=== PATIENT | female | born 1960 | race Caucasian/White ===

== ENCOUNTER 2020-01-25 06:09 | Inpatient (IN) | payer OTHER ==
--- OUTSIDE RECORDS SUMMARY | 2020-01-25 06:13 | XMS ---
:1960 Author Organization [facility] Care Team Providers Name Role Phone Blossom, Mohsen Unavailable Unavailable Blossom, Mohsen Unavailable Unavailable Blossom, Mohsen Unavailable Unavailable Blossom, Mohsen Unavailable Unavailable Blossom, Mohsen Unavailable Unavailable Blossom, Mohsen Unavailable Unavailable Blossom, Mohsen Unavailable Unavailable Blossom, Mohsen Unavailable Unavailable Blossom, Mohsen Unavailable Unavailable Re-disclosure Warning The records that you are about to access may contain information from federally- assisted alcohol or drug abuse programs. If such information is present, then the following federally mandated warning applies: This information has been disclosed to you from records protected by federal confidentiality rules (42 CFR part 2). The federal rules prohibit you from making any further disclosure of this information unless further disclosure is expressly permitted by the written consent of the person to whom it pertains or as otherwise permitted by 42 CFR part 2. A general authorization for the release of medical or other information is NOT sufficient for this purpose. The Federal rules restrict any use of the information to criminally investigate or prosecute any alcohol or drug abuse patient.The records that you are about to access may contain highly sensitive health information, the redisclosure of which is protected by Article 27-F of the [facility] Public Health law. If you continue you may haveaccess to information: Regarding HIV / AIDS; Provided by facilities licensed or operated by the [facility] Office of Mental Health; or Provided by the [facility] Office for People With Developmental Disabilities. If such information is present, then the following [facility] mandated warning applies: This information has been disclosed to you from confidential records which are protected by state law. State law prohibits you from making any further disclosure of this information without the specific written consent of the person to whom it pertains, or as otherwise permitted by law. Any unauthorized further disclosure in violation of state law may result in a fine or longterm sentence or both. A general authorization for the release of medical or other information is NOT sufficient authorization for further disclosure. Encounters Encounter Providers Location Date Indications Data Source(s ) Attender: Mohsen 01/02/2020 [facility] ( [facility] Blossom 12:00:00 AM EDT Medical, ) Office Attender: Mohsen Cerrato 01/02/2020 12:00:00 A M EDT [facility] ([facility], ) Office Attender: Mohsen Cerrato 01/02/2020 12:00:00 A M EDT [facility] ([facility], ) Office Attender: Mohsen Cerrato 01/02/2020 12:00:00 A M EDT [facility] ([facility], ) Office Medications Medication Brand Start Product Dose Route Administrative Pharmacy [facility] Indications Reaction Description Data Name Date Form Instructions Instructions Source(s) Cholecalcif CHOLEC CHOLEC ALCIFE [facility] (St josh 1999 ALCIFE 2019 ed ROL [facility] UNT Oral ROL:80 12:00: Medical , Tablet 1663 00 AM PC) CHOLECALCIF EDT JOSH:[id number] CELEBREX: complet CELEBREX Donna TRUONG (St 2019 ed [facility] 12:00: Medical, 00 AM PC) EDT Simvastatin SIMVAS complet SIMVAS TATIN [facility] (St 10 MG Oral TATIN: 2019 ed [facility] Tablet [id number] 12:00: Medical, SIMVASTATIN 00 AM PC) :[id number] EDT Cholecalcif CHOLEC complet CHOLEC ALCIFE [facility] (St josh 1999 ALCIFE 2019 ed ROL [facility] UNT Oral ROL:80 12:00: Medical , Tablet 1663 00 AM PC) CHOLECALCIF EDT JOSH:[id number] Simvastatin SIMVAS complet SIMVAS TATIN [facility] (St 10 MG Oral TATIN: 2020 ed [facility] Tablet 339390 12:00: Medical, SIMVASTATIN 00 AM PC) :[id number] EDT CELEBREX: complet CELEBREX M EDGEN (St 2019 ed [facility] 12:00: Medical, 00 AM PC) EDT Simvastatin SIMVAS SIMVAS TATIN [facility] (St 10 MG Oral TATIN: 2019 ed [facility] Tablet [id number] 12:00: Medical, SIMVASTATIN 00 AM PC) :[id number] EDT CELEBREX: CELEBREX M MAITEN (St 2020 ed [facility] 12:00: Medical, 00 AM PC) EDT Insurance Providers Payer name Policy type Policy ID Covered Covered alliance party's Policy P hugo / Coverage alliance party ID relationship to Eckert Inf ormation type eckert CIGNA [id number] SP [id number] HEALTHCARE HMO CIGNA [id number] SP [id number] HEALTHCARE HMO 2 CIGNA [id number] 2 AETNA (HMO) [id number] Problems, Conditions, and Diagnoses Code Display Name Description Problem Type Effective Data Sour ce(s) Dates M16.12 Unilateral primary UNILATERAL PRIMARY Problem 0 [facility] ([address] osteoarthritis, OSTEOARTHRITIS, 12:00:00 AM [facility] left hip LEFT HIP EDT Medical, ) Z01.818 Encounter for other ENCOUNTER FOR Problem 01/02/2020 ME DGEN (St preprocedural OTHER 12:00:00 AM [facility] examination PREPROCEDURAL EDT Medical, P C) EXAMINATION M16.12 Unilateral primary UNILATERAL PRIMARY Problem 0 [facility] ([address] osteoarthritis, OSTEOARTHRITIS, 12:00:00 AM [facility] left hip LEFT HIP EDT Medical, PC) M16.12 Unilateral primary UNILATERAL PRIMARY Problem 0 [facility] (St osteoarthritis, OSTEOARTHRITIS, 12:00:00 AM [facility] left hip LEFT HIP EDT Medical, PC) J01.90 Acute sinusitis, ACUTE SINUSITIS, Problem 05/14/2019 ME DGEN (St unspecified UNSPECIFIED 12:00:00 AM [facility], ) J01.90 Acute sinusitis, ACUTE SINUSITIS, Problem 05/14/2019 ME DGEN (St unspecified UNSPECIFIED 12:00:00 AM [facility], ) J01.90 Acute sinusitis, ACUTE SINUSITIS, Problem 05/14/2019 ME DGEN (St unspecified UNSPECIFIED 12:00:00 AM [facility], ) Surgeries/Procedures Procedure Description Date Indications Data Source(s) Documentation of current 01/02/2020 MED [facility] ([facility] medications (procedure) 12:00:00 AM EDT [facility], ) Documentation of current 01/02/2020 MED [facility] ([facility] medications (procedure) 12:00:00 AM EDT [facility], ) Documentation of current 01/02/2020 MED [facility] ([facility] medications (procedure) 12:00:00 AM EDT [facility], ) Documentation of current 01/02/2020 MED [facility] ([facility] medications (procedure) 12:00:00 AM T [facility], ) Documentation of current 01/02/2020 MED [facility] ([facility] medications (procedure) 12:00:00 AM T [facility], ) Documentation of current 01/02/2020 MED [facility] ([facility] medications (procedure) 12:00:00 AM T [facility], ) Documentation of current 01/02/2020 MED [facility] ([facility] medications (procedure) 12:00:00 AM T [facility], ) OFFICE OUTPATIENT VISIT 01/02/2020 MED[facility] EN ([facility] 15 MINUTES 12:00:[address] [facility], ) ECG ROUTINE ECG W/LEAST 01/02/2020 [facility] EN ([facility] 12 LDS W/I&R 12:00:[address] [facility], ) Documentation of current 01/02/2020 MED [facility] ([facility] medications (procedure) 12:00:00 AM EDT [facility], ) ECG ROUTINE ECG W/LEAST 01/02/2020 MED[facility] EN ([facility] 12 LDS W/I&R 12:00:[address] [facility], ) Documentation of current 01/02/2020 MED [facility] ([facility] medications (procedure) 12:00:00 AM EDT [facility], ) Documentation of current 01/02/2020 MED [facility] ([facility] medications (procedure) 12:00:00 AM T [facility], ) ECG ROUTINE ECG W/LEAST 01/02/2020 MED[facility] EN ([facility] 12 LDS W/I&R 12:00:[address] [facility], ) Documentation of current 05/14/2019 MED [facility] ([facility] medications (procedure) 12:00:00 AM EST [facility], ) Documentation of current 05/14/2019 MED [facility] ([facility] medications (procedure) 12:00:00 AM EST [facility], ) Documentation of current 05/14/2019 [facility] Documentation of current 05/14/2019 [facility] ([facility] medications (procedure) 12:00:00 AM EST cheliical, ) OFFICE OUTPATIENT VISIT 05/14/2019 MED[facility] EN ([facility] 25 MINUTES 12:00:00 AM [facility] Medical, ) Documentation of current 05/14/2019 MED GEN ([facility] medications (procedure) 12:00:00 AM EST cheliical, ) Documentation of current 05/14/2019 MED [facility] ([facility] medications (procedure) 12:00:00 AM EST cheliical, ) Documentation of current 05/14/2019 MED [facility] ([facility] medications (procedure) 12:00:00 AM EST cheliical, ) Documentation of current 05/14/2019 MED [facility] ([facility] medications (procedure) 12:00:00 AM EST cheliical, ) OFFICE OUTPATIENT VISIT 05/14/2019 MED[facility] EN ([facility] 25 MINUTES 12:00:00 AM [facility] Medical, PC) Documentation of current 05/14/2019 MED [facility] ([facility] medications (procedure) 12:00:00 AM EST cheliical, ) Documentation of current 05/14/2019 MED [facility] ([facility] medications (procedure) 12:00:00 AM EST [facility]ical, ) Documentation of current 05/14/2019 MED [facility] ([facility] medications (procedure) 12:00:00 AM EST [facility]liical, ) Documentation of current 05/14/2019 [facility] ([facility] medications (procedure) 12:00:00 AM EST [facility]liical, ) OFFICE OUTPATIENT VISIT 05/14/2019 MED[facility] EN ([facility] 25 MINUTES 12:00:00 AM EST Medical, ) Results ID Date Data Source [id number] 01/21/2020 11:03:00 AM EDT [facility] Name Value Range Interpretation Description Data Sup porting Code Source(s) Document(s ) SARS [facility] coronavirus 2 RNA This lab was ordered by MIRNA cardoza [facility] and reported by [facility]. Procedure Social History Code Duration Value Status Description Data Source(s ) Smoking 01/07/2020 Tobacco Status: completed Tobacco Status: MEDG EN (St 12:00:00 AM EDT [facility] Sm[facility]: Smoking: < PC) < 1 1 Pack Smoking Pack Smoking History: 5-10 History: 5-10 Years Smoking Stop Years Smoking Date: 1981 Drinks Stop Date: 1981 a glass of wine or Drinks a glass a cocktail 3 x per of wine or a week cocktail 3 x per week Smoking 01/07/2020 Unknown if ever completed Unknown if ever MEDG EN (St 12:00:00 AM EDT smoked smoked Ca perera, PC) Smoking 01/02/2020 Tobacco Status: completed Tobacco Status: MEDG EN (St 12:00:00 AM EDT Former smoker [facility] Smoking: Smoking: < PC) < 1 1 Pack Smoking Pack Smoking History: 5-10 History: 5-10 Years Smoking Stop Years Smoking Date: 1981 Drinks Stop Date: 1981 a glass of wine or Drinks a glass a cocktail 3 x per of wine or a week cocktail 3 x per week Smoking 01/02/2020 Unknown if ever completed Unknown if ever MEDG EN (St 12:00:00 AM EDT smoked smoked aC [facility], PC) Smoking 01/02/2020 Tobacco Status: completed Tobacco Status: MEDG EN (St 12:00:00 AM EDT Former smoker [facility] Smoking: Smoking: < PC) < 1 1 Pack Smoking Pack Smoking History: 5-10 History: 5-10 Years Smoking Stop Years Smoking Date: 1981 Drinks Stop Date: 1981 a glass of wine or Drinks a glass a cocktail 3 x per of wine or a week cocktail 3 x per week Smoking 01/02/2020 Unknown if ever completed Unknown if ever MEDG EN (St 12:00:00 AM EDT smoked smoked Ca [facility], PC) Vital Signs ID Date Data Source UNK Name Value Range Interpretation Code Description Data Source(s) Heart rate 60 /min 60 /min [facility] (St [facility], PC) Respiratory rate 17 /min 17 /min [facility] ( [facility], ) Body mass index 37.5 kg/m2 37.5 kg/m2 [facility] ([facility] (BMI) [Ratio] Medical, ) Diastolic blood 80 mm[Hg] 80 mm[Hg] [facility] ([facility] pressure Medical, ) Systolic blood 116 mm[Hg] 116 mm[Hg] MED[facility] ([facility] pressure [facility], ) Body weight 250 lb 250 lb MEDGEN (St [facility], ) Body height 68.5 in 68.5 in [facility] ([facility], ) Heart rate 60 /min 60 /min [facility] ([facility], ) Respiratory rate 17 /min 17 /min MED[facility] ( [place], ) Body mass index 37.5 kg/m2 37.5 kg/m2 [facility] ([facility] (BMI) [Ratio] Medical, ) Diastolic blood 80 mm[Hg] 80 mm[Hg] [facility] ([facility] pressure Medical, ) Systolic blood 116 mm[Hg] 116 mm[Hg] MED[facility] ([facility] pressure [facility], ) Body weight 250 lb 250 lb [facility] ([facility], ) Body height 68.5 in 68.5 in [facility] ([facility], ) Heart rate 60 /min 60 /min [facility] ([facility], ) Respiratory rate 17 /min 17 /min MED[facility] ( [place], ) Body mass index 37.5 kg/m2 37.5 kg/m2 [facility] ([facility] (BMI) [Ratio] Medical, ) Diastolic blood 80 mm[Hg] 80 mm[Hg] MED[facility] ([facility] pressure Medical, ) Systolic blood 116 mm[Hg] 116 mm[Hg] MED[facility] ([facility] pressure [facility], ) Body weight 250 lb 250 lb MED[facility] ([facility], ) Body height 68.5 in 68.5 in [facility] ([facility], ) Heart rate 76 /min 76 /min [facility] ([facility], ) Respiratory rate 16 /min 16 /min [facility] ( [facility], ) Body temperature 98.7 F 98.7 F MED[facility] ( [place], ) Diastolic blood 70 mm[Hg] 70 mm[Hg] MED[facility] ([facility]'s pressure [facility], ) Systolic blood 108 mm[Hg] 108 mm[Hg] [facility] ([facility], ) Heart rate 76 /min 76 /min [facility] ([facility], ) Respiratory rate 16 /min 16 /min [facility] ( [facility], ) Body temperature 98.7 F 98.7 F MED[facility] ( [facility], ) Diastolic blood 70 mm[Hg] 70 mm[Hg] MED[facility] ([facility]'s pressure [facility], ) Systolic blood 108 mm[Hg] 108 mm[Hg] MED[facility] ([facility], ) Heart rate 76 /min 76 /min MED[facility] ([facility], ) Respiratory rate 16 /min 16 /min MED[facility] ( [facility], ) Body temperature 98.7 F 98.7 F MED[facility] ( [facility], ) Diastolic blood 70 mm[Hg] 70 mm[Hg] MED[facility] (S [facility] pressure [facility], ) Systolic blood 108 mm[Hg] 108 mm[Hg] [facility] ([facility], )
[2020-01-25] MEDS ORDERED: MIDAZOLAM HCL 2 MG/2 ML SINGLE DOSE VIAL ONE (06:40)
[2020-01-25] MEDS ORDERED: ROPIVACAINE HCL 0.5% 30ML VIAL ONE (06:40)
[2020-01-25 07:06] VITALS: BMI 36.6
[2020-01-25] MEDS ORDERED: ceFAZolin SODIUM 1 GM VIAL ONE ×3 (07:06→15:26)
[2020-01-25] MEDS ORDERED: VANCOMYCIN 1,000 MG VIAL (RESTRICTED TO ID ONLY) ONE (07:06)
[2020-01-25] MEDS ORDERED: PROPOFOL 20 ML ONE (07:18)
[2020-01-25] MEDS ORDERED: SUCCINYLCHOLINE CHLORIDE 200 MG/10 ML SYRINGE ONE (07:18)
[2020-01-25] MEDS ORDERED: BUPIVACAINE HCL/PF 0.5% (5MG/ML) 10 ML VIAL ONE (07:23)
[2020-01-25] MEDS ORDERED: ONDANSETRON 4 MG/2 ML VIAL IVPUSH PRN (07:58)
[2020-01-25] MEDS ORDERED: MAGNESIUM HYDROX 2400MG/30ML ORAL SUSPENSION 30 ML CUP PO PRN (07:58)
[2020-01-25] MEDS ORDERED: MAG HYDROX/AL HYDROX/SIMETH 30 ML UNIT-DOSE CUP PO PRN (07:58)
[2020-01-25] MEDS ORDERED: LACTATED RINGERS SOLUTION 1,000 ML IV SCH (08:00)
[2020-01-25] MEDS ORDERED: TRANEXAMIC ACID 1000 MG/10 ML VIAL IVPUSH ONE (08:00)
--- NOTE | 2020-01-25 08:01 | HP ---
Satellite [facility] - Chief Complaint Chief Complaint: left hip pain - Past Medical History Allergies/Adverse Reactions: Allergies Allergy/AdvReac Type Severity Reaction Status Date / Time phenytoin sodium Allergy Unverified 03/18/16 05:40 [From Dilantin] phenytoin sodium extended Allergy Unverified 03/18/16 05:40 [From Dilantin] - Current Medications Current Medications: Home Medications Medication Instructions Recorded Simvastatin 10 mg PO DAILY tablet 12/20/12 Levothyroxine Sodium 15 mcg PO DAILY tablet 07/08/14 Cholecalciferol (Vitamin D3) 2,000 unit PO DAILY 03/16/16 [Vitamin D3] Celecoxib [Celebrex] 100 mg PO BID 01/18/20 Satellite Physical Exam - Physical Examination Vital Signs: Vital Signs Period Temp Pulse Resp BP Sys/Estevez Pulse Ox Last 24 Hr 98.2 F 68 18 120/76 97 General Appearance: Well Nourished, Well Developed, Alert & Oriented x3 ENT: Clear Lung: Normal air movement Extremities: Other (left hip - + ttp, decr rom, nvi, xrays show grade 4 hip djd) Neurological: Intact, Alert, Oriented Satellite Impression/Plan - Impression/Plan Impression: left hip djd Operative Procedure: left benjamin thr Date to be Performed: 01/25/20
[2020-01-25] MEDS ORDERED: LIDOCAINE HCL/PF 2% SDV 5ML VIAL ONE (08:13)
[2020-01-25] MEDS ORDERED: TRANEXAMIC ACID 1000 MG/10 ML VIAL ONE (08:24)
[2020-01-25] MEDS ORDERED: EPHEDRINE SULFATE/0.9% NACL/PF 50 MG/10 ML SYRINGE NR ONE (08:56)
[2020-01-25] MEDS ORDERED: oxyCODONE HCL 5 MG TABLET PO PRN (09:32)
--- NOTE | 2020-01-25 09:52 | OP ---
Operative Note - Note: Operative Date: 01/25/20 (jessica) Pre-Operative Diagnosis: left hip djd Operation: left benjamin thr Post-Operative Diagnosis: Same as Pre-op Surgeon: Paddy Selby Pressurizer: Kameron Monroe) Anesthesiologist/PROJECT ASST: Cori Gonzales Anesthesia: Spinal, Local Specimens Removed: femoral head Estimated Blood Loss (mls): 150
[2020-01-25] MEDS ORDERED: VANCOMYCIN 1,000 MG VIAL (RESTRICTED TO ID ONLY) IVPB ONE (09:55)
[2020-01-25] MEDS ORDERED: PATIENT'S OWN MEDICATION (NON-FORMULARY) (Simvastatin [Simvastatin] 10 MG) PO SCH (10:00)
[2020-01-25] MEDS: oxyCODONE HCL 5 MG TABLET PO PRN ×2 (12:34→15:49)
[2020-01-25] MEDS: ACETAMINOPHEN 325 MG TABLET (FP) PO SCH ×2 (12:34→18:52)
[2020-01-25] MEDS: PANTOPRAZOLE 40 MG TABLET PO SCH (12:41)
[2020-01-25] MEDS: MULTIVITAMINS (DAILY MVI) TABLET (FP) PO SCH (12:41)
[2020-01-25] MEDS: traMADol HCL 50 MG TABLET PO PRN (13:30)
--- NOTE | 2020-01-25 13:47 | SPEC ---
DATE OF OPERATION: 01/25/2020 PREOPERATIVE DIAGNOSIS: Left hip degenerative joint disease. POSTOPERATIVE DIAGNOSIS: Left hip degenerative joint disease. PROCEDURE PERFORMED: Left total hip replacement with robotic-assisted navigation (MAKOplasty). SURGICAL ATTENDING: Paddy Selby MD EMERGENCY DEPT TECH: GÉNESIS Burroughs [facility] NURSE: Luis Gómez MD ANESTHESIA: Regional and spinal. CLOSURE: A Lolita total hip system with a 7 femur, a 36 ceramic plus 5 head, a 54 Trident II press fit acetabulum, number 1 Vicryl fascia, 0 and 2-0 subcutaneous, 3-0 Monocryl subcuticular, skin glue. Four undyed Vicryl for pin sites. ESTIMATED BLOOD LOSS: Approximately 100 mL. COMPLICATIONS: None. CONDITION: To the recovery room in stable condition. DESCRIPTION OF PROCEDURE: The patient was taken to the operating room on January 25, 2020. General and regional anesthesia was administered by the anesthesiologist. IV Kefzol and TXA were administered prophylactically prior to the case. The patient was placed in the lateral decubitus position will all prominences well-padded. The left hip area was prepped and draped in the usual sterile fashion. Using 3 small stab incisions over the iliac crest, 3 threaded pins were drilled in power fashion through the 2 tables of the crest. These pins were fastened and the navigation array for the Elvis navigation system. Next, a 12 to 15-cm curved longitudinal incision over the posterolateral aspect of the greater trochanter was incised. Hemostasis was achieved with Bovie cautery. Sharp dissection was carried down to level of the fascia. The fascia was opened the entire length of the incision, spreading the fibers of the gluteus rhianna in the direction of origin. A Charnley retractor was placed in this layer. Care was taken not to impale the sciatic nerve. The short external rotators were detached off the insertion of the greater trochanter and peeled off the capsule. A posterior capsulotomy was then performed. A check point was malleted into the greater trochanter and a point on the inferior pole of the patella was obtained as well. These 2 points were used to assess the preoperative offset and limb lengths of the hip. The hip was then dislocated. The femoral neck was then osteotomized down to the appropriate level as directed by the navigation device. Anterior and posterior retractors were placed, exposing the acetabulum. A circumferential labral excision was performed. A check point was malleted into the acetabulum as well. Multiple sites inside the acetabulum and around the rim were utilized to register the acetabulum with the navigation device. An excellent registration of less than 0.5 mm was obtained. The hip was then reamed with the appropriate reamer down to the appropriate depth, with the appropriate orientation and version as assessed on our preoperative plan for this patient. The reamer was removed and the acetabulum was inspected to have good bleeding surfaces throughout. The real acetabular cup was then malleted down into place, with the holes in the appropriate position, until an excellent fixation was obtained. No screws were necessary. The navigation device ensured appropriate orientation and version, with the depth as predetermined. The appropriate liner was then clipped into place. Attention was directed to the femur. The proximal femur was prepared by use a box chisel, a canal finder and serial broaches until the broach achieved excellent rigidity in the proximal femur with the appropriate version being applied. A calcar planer was used to smooth off the calcar flush with the trial components. A trial reduction with the appropriate head was done, and the hip was reduced. The hip was taken through a range of motion from full extension with external rotation to marked flexion, and was stable at 90 degrees of flexion. It was stable to marked abduction and internal rotation, with a positive hang test and negative telescoping. Limb lengths were ascertained visually as well as with the navigation device to be within the targeted range for this patient. The trial component was removed. The real component was then malleted into place. The head was cold welded to the trunnion, and the hip was reduced. Range of motion, stability and limb lengths were as described in the trial component. Then the hip was pulse antibiotic irrigated. Vancomycin powder was placed in the hip joint. The capsule was closed. The fascia was then closed as well using number 1 Vicryl interrupted suture, 0 and 2-0 subcutaneous, and 3-0 V-Loc for the skin. 4-0 undyed Vicryl was used to close the pin sites after the pins were removed. All check points were also removed. Sterile Aquacel dressing was applied. The patient was awakened from anesthesia and transferred into the supine position. Bilateral SCDs and an abduction pillow were placed. X-rays revealed excellent position of the components. The patient was transferred to the recovery room in stable condition, with no complications. Estimated blood loss was less than 100 mL. Jigna [id number]
[2020-01-25] MEDS ORDERED: DEXTROSE 5%-WATER 100 ML IVPB ONE (15:26)
[2020-01-25] MEDS: CEFAZOLIN 3 GM in DEXTROSE 5%-WATER 100 ML IVPB SCH (15:50)
[2020-01-25] MEDS: ATORVASTATIN CA 10 MG TABLET (FP) PO SCH (22:28)
[2020-01-25] MEDS: SENNOSIDES/DOCUSATE COMBO (SENNA PLUS) TABLET (UD) PO SCH (22:28)
[2020-01-26] MEDS ORDERED: ceFAZolin SODIUM 1 GM VIAL ONE (00:07)
[2020-01-26] MEDS ORDERED: DEXTROSE 5%-WATER 100 ML IVPB ONE (00:08)
[2020-01-26] MEDS: CEFAZOLIN 3 GM in DEXTROSE 5%-WATER 100 ML IVPB SCH (00:13)
[2020-01-26] MEDS: ACETAMINOPHEN 325 MG TABLET (FP) PO SCH ×5 (00:13→23:31)
[2020-01-26] MEDS: oxyCODONE HCL 5 MG TABLET PO PRN (00:23)
[2020-01-26] MEDS: LEVOTHYROXINE NA 125 MCG TABLET (FP) PO SCH (06:54)
[2020-01-26 08:19] LABS: HEMATOCRIT 34.2 % (32.4-45.2); HEMOGLOBIN 11.5 GM/dl (10.7-15.3); MCH 27.7 pg (25.7-33.7); MCHC 33.7 g/dl (32.0-36.0); MEAN CELL VOLUME 82.4 fl (80-96); MEAN PLT VOLUME 6.2 fl (7.5-11.1); PLATELET COUNT 176 K/MM3 (134-434); RBC 4.15 M/mm3 (3.60-5.2); WHITE BLOOD COUNT 7.9 K/mm3 (4.0-10.8)
[2020-01-26] MEDS: ASPIRIN 325 MG TABLET PO SCH (08:45)
[2020-01-26] MEDS: SENNOSIDES/DOCUSATE COMBO (SENNA PLUS) TABLET (UD) PO SCH ×2 (09:23→21:07)
[2020-01-26] MEDS: MULTIVITAMINS (DAILY MVI) TABLET (FP) PO SCH (09:23)
[2020-01-26] MEDS: PANTOPRAZOLE 40 MG TABLET PO SCH (09:23)
[2020-01-26] MEDS ORDERED: SODIUM CHLORIDE 1,000 ML IV STA (10:45)
--- NOTE | 2020-01-26 11:22 | CONSULT ---
Consultation: REQUESTING PROVIDER: Dr. Gómez CONSULT REQUEST: We have been asked to medically evaluate this patient during the post-operative period. HISTORY OF PRESENT ILLNESS: 57 year-old female with a PMH significant for HLD, hypothyroidism, medina- hypopituitarism (s/p brain surgery), migraines, and left hip degenerative joint disease s/p left KEYSHAWN total hip replacement. REVIEW OF SYSTEMS: CONSTITUTIONAL: +weakness, dizziness, nausea Absent: fever, chills, diaphoresis, generalized weakness, malaise, loss of appetite, weight change HEENT: Absent: rhinorrhea, nasal congestion, throat pain, throat swelling, difficulty swallowing, mouth swelling, ear pain, eye pain, visual changes CARDIOVASCULAR: Absent: chest pain, syncope, palpitations, irregular heart rate, lightheadedness, peripheral edema RESPIRATORY: Absent: cough, shortness of breath, dyspnea with exertion, orthopnea, wheezing, stridor, hemoptysis GASTROINTESTINAL: Absent: abdominal pain, abdominal distension, nausea, vomiting, diarrhea, constipation, melena, hematochezia GENITOURINARY: Absent: dysuria, frequency, urgency, hesitancy, hematuria, flank pain, genital pain MUSCULOSKELETAL: Absent: myalgia, arthralgia, joint swelling, back pain, neck pain SKIN: Absent: rash, itching, pallor HEMATOLOGIC/IMMUNOLOGIC: Absent: easy bleeding, easy bruising, lymphadenopathy, frequent infections ENDOCRINE: Absent: unexplained weight gain, unexplained weight loss, heat intolerance, cold intolerance NEUROLOGIC: Absent: headache, focal weakness or paresthesias, dizziness, unsteady gait, seizure, mental status changes, bladder or bowel incontinence PSYCHIATRIC: Absent: anxiety, depression, suicidal or homicidal ideation, hallucinations. PHYSICAL EXAMINATION Vital Signs - 24 hr 01/26/20 01/26/20 01/26/20 06:00 07:26 07:34 Temperature 99.8 F H 98.9 F Pulse Rate 85 83 Respiratory 17 18 17 Rate Blood Pressure 97/51 L 97/55 L O2 Sat by Pulse 94 L 94 L 96 Oximetry (%) 01/26/20 01/26/20 08:20 10:11 Temperature 99.4 F Pulse Rate 80 79 Respiratory 18 Rate Blood Pressure 102/68 94/52 L O2 Sat by Pulse 100 Oximetry (%) GENERAL: Awake, alert, and fully oriented; appears fatigued HEAD: Normal with no signs of trauma. LUNGS: Breath sounds equal, clear to auscultation bilaterally. HEART: Regular rate and rhythm, normal S1 and S2 . ABDOMEN: Soft, nontender, not distended, normoactive bowel sounds UPPER EXTREMITIES: 2+ pulses, warm, well-perfused. No cyanosis. No clubbing. Cap refill <2 seconds. No peripheral edema. LLE: surgical dressing c/d/i NEUROLOGICAL: Cranial nerves II-XII intact. Normal speech. Laboratory Results - last 24 hr 01/26/20 07:15 WBC 7.9 RBC 4.15 Hgb 11.5 Hct 34.2 MCV 82.4 MCH 27.7 MCHC 33.7 RDW 12.0 Plt Count 176 MPV 6.2 L Active Medications Generic Name Dose Route Start Last Admin Trade Name Freq PRN Reason Stop Dose Admin Acetaminophen 650 mg 01/25/20 12:00 01/26/20 11:15 Tylenol - PO 01/28/20 11:59 650 mg Q6H ALF Administration Al Hydroxide/Mg Hydroxide 30 ml 01/25/20 07:58 Mylanta Oral Suspension - PO Q4H PRN DYSPEPSIA Aspirin 325 mg 01/26/20 08:00 01/26/20 08:45 Asa - PO 325 mg DAILY@0800 ALF Administration Atorvastatin Calcium 10 mg 01/25/20 22:00 01/25/20 22:28 Lipitor - PO 10 mg HS ALF Administration Diphenhydramine HCl 12.5 mg 01/25/20 12:19 Benadryl Injection - IVPUSH Q4H PRN FOR ITCHING Fentanyl 50 mcg 01/25/20 09:32 Sublimaze Injection - IVPUSH [id number] PRN PAIN-PACU ORDER X 4 DOSES ONLY Levothyroxine Sodium 125 mcg 01/26/20 07:00 01/26/20 06:54 Synthroid - PO 125 mcg DAILY@0700 ALF Administration Magnesium Hydroxide 30 ml 01/25/20 07:58 Milk Of Magnesia - PO PRN PRN CONSTIPATION Multivitamins/Minerals/Vitamin C 1 tab 01/25/20 10:00 01/26/20 09:23 Tab-A-Vit - PO 1 tab DAILY ALF Administration Ondansetron HCl 4 mg 01/25/20 07:58 01/26/20 07:00 Zofran Injection IVPUSH 4 mg Q6H PRN Administration NAUSEA Oxycodone HCl 10 mg 01/25/20 09:32 01/26/20 00:23 Roxicodone - PO 10 mg Q3H PRN Administration PAIN LEVEL 7 - 10 Oxycodone HCl 5 mg 01/25/20 09:32 Roxicodone - PO Q3H PRN PAIN LEVEL 4 - 6 Pantoprazole Sodium 40 mg 01/25/20 10:00 01/26/20 09:23 Protonix - PO 40 mg DAILY ALF Administration Senna/Docusate Sodium 2 tablet 01/25/20 22:00 01/26/20 09:23 Pericolace - PO 2 tablet BID ALF Administration Tramadol HCl 50 mg 01/25/20 09:32 01/25/20 13:30 Ultram - PO 50 mg Q3H PRN Administration PAIN LEVEL 1 - 3 Pre op Hgb 12.5 ASSESSMENT/PLAN: 57 year-old female with a PMH significant for HLD, hypothyroidism, medina- hypopituitarism (s/p brain surgery), migraines, and left hip degenerative joint disease s/p left KEYSHAWN total hip replacement. Unable to participate in PT today due to dizziness, nausea, weakness. s/p left KEYSHAWN total hip replacement --POD #1 --perioperative antibiotics per surgery --pain management per surgery --ASA 325mg daily --Zofran PRN Hypotension --weakness and dizziness likely secondary to volume depletion, get orthostatics --NS x 1L bolus, then 125/hr for additional liter --h/h stable --check TSH FEN Fluids: NS@125mL/hr Electrolytes: replete as indicated Nutrition: regular diet DVT prophylaxis: OOB, ambulation, SCDs, TEDs, ASA 325mg daily Physical therapy Dispo: We will continue to follow the patient. Thank you for this consultative opportunity. Visit type - Emergency Visit Emergency Visit: No - New Patient This patient is new to me today: Yes Date on this admission: 01/26/20 - Critical Care Critical Care patient: No
[2020-01-26] MEDS ORDERED: SODIUM CHLORIDE 1,000 ML IV SCH (11:45)
[2020-01-26 14:45] LABS: BASO % 0.2 % (0-2.0); HEMATOCRIT 31.8 % (32.4-45.2); HEMOGLOBIN 10.9 GM/dl (10.7-15.3); LYMPH % 9.2 % (8-40); MCH 28.4 pg (25.7-33.7); MCHC 34.3 g/dl (32.0-36.0); MEAN CELL VOLUME 82.5 fl (80-96); MONO % 5.2 % (3.8-10.2); NEUT % 84.4 % (42.8-82.8); PLATELET COUNT 153 K/MM3 (134-434); RBC 3.85 M/mm3 (3.60-5.2); RDW 12.6 % (11.6-15.6); WHITE BLOOD COUNT 8.2 K/mm3 (4.0-10.8)
[2020-01-26] MEDS ORDERED: oxyCODONE HCL 5 MG TABLET PO PRN (14:59)
[2020-01-26 15:05] LABS: ALBUMIN 2.7 g/dl (3.4-5.0); BILIRUBIN,TOTAL 0.9 mg/dl (0.2-1); CALCIUM 8.1 mg/dl (8.5-10); CREATININE 0.8 mg/dl (0.55-1.3); MAGNESIUM 1.5 mg/dL (1.8-2.4); PHOSPHOROUS 3.6 mg/dl (2.5-4.9); TOT PROT 5.1 g/dl (6.4-8.2)
[2020-01-26] MEDS ORDERED: MAGNESIUM SULF 50% (8.12 MEQ/2 ML-1 GM VIAL) IVPB ONE (15:23)
[2020-01-26] MEDS: traMADol HCL 50 MG TABLET PO PRN ×2 (17:52→21:08)
[2020-01-26] MEDS: ATORVASTATIN CA 10 MG TABLET (FP) PO SCH (21:07)
[2020-01-26] MEDS: SUCRALFATE 1 GM/10 ML UNIT DOSE CUPS PO SCH (21:07)
[2020-01-27] MEDS: ACETAMINOPHEN 325 MG TABLET (FP) PO SCH ×2 (06:31→12:32)
[2020-01-27] MEDS: LEVOTHYROXINE NA 125 MCG TABLET (FP) PO SCH (06:32)
[2020-01-27 08:09] LABS: BASO % 0.2 % (0-2.0); EOS % 2.3 % (0-4.5); HEMATOCRIT 29.5 % (32.4-45.2); HEMOGLOBIN 9.8 GM/dl (10.7-15.3); LYMPH % 10.7 % (8-40); MCH 27.4 pg (25.7-33.7); MCHC 33.1 g/dl (32.0-36.0); MEAN CELL VOLUME 82.9 fl (80-96); MEAN PLT VOLUME 6.5 fl (7.5-11.1); MONO % 7.1 % (3.8-10.2); NEUT % 79.7 % (42.8-82.8); PLATELET COUNT 152 K/MM3 (134-434); RBC 3.55 M/mm3 (3.60-5.2); WHITE BLOOD COUNT 7.6 K/mm3 (4.0-10.8)
[2020-01-27 08:30] LABS: ALBUMIN 2.5 g/dl (3.4-5.0); BILIRUBIN,TOTAL 0.7 mg/dl (0.2-1); CALCIUM 8.2 mg/dl (8.5-10); CREATININE 0.6 mg/dl (0.55-1.3); MAGNESIUM 1.7 mg/dL (1.8-2.4)
--- NOTE | 2020-01-27 08:56 | PN ---
Progress Note, Physician - Current Medication List Current Medications: Active Medications Acetaminophen (Tylenol -) 650 mg PO Q6H [facility] Stop: 01/28/20 11:59 Last Admin: 01/27/20 06:31 Dose: 650 mg Documented by: Al Hydroxide/Mg Hydroxide (Mylanta Oral Suspension -) 30 ml PO Q4H PRN PRN Reason: DYSPEPSIA Last Admin: 01/26/20 16:17 Dose: 30 ml Documented by: Aspirin (Asa -) 325 mg PO DAILY@0800 [facility] Last Admin: 01/26/20 08:45 Dose: 325 mg Documented by: Atorvastatin Calcium (Lipitor -) 10 mg PO HS [facility] Last Admin: 01/26/20 21:07 Dose: 10 mg Documented by: Levothyroxine Sodium (Synthroid -) 125 mcg PO DAILY@0700 [facility] Last Admin: 01/27/20 06:32 Dose: 125 mcg Documented by: Magnesium Hydroxide (Milk Of Magnesia -) 30 ml PO PRN PRN PRN Reason: CONSTIPATION Multivitamins/Minerals/Vitamin C (Tab-A-Vit -) 1 tab PO DAILY [facility] Last Admin: 01/26/20 09:23 Dose: 1 tab Documented by: Ondansetron HCl (Zofran Injection) 4 mg IVPUSH Q6H PRN PRN Reason: NAUSEA Last Admin: 01/26/20 07:00 Dose: 4 mg Documented by: Oxycodone HCl (Roxicodone -) 5 mg PO Q6H PRN PRN Reason: PAIN LEVEL 4 - 6 Pantoprazole Sodium (Protonix -) 40 mg PO DAILY [facility] Last Admin: 01/26/20 09:23 Dose: 40 mg Documented by: Senna/Docusate Sodium (Pericolace -) 2 tablet PO BID [facility] Last Admin: 01/26/20 21:07 Dose: 2 tablet Documented by: Sucralfate (Carafate Oral Suspension -) 1 gm PO BID [facility] Last Admin: 01/26/20 21:07 Dose: Not Given Documented by: Tramadol HCl (Ultram -) 50 mg PO Q3H PRN PRN Reason: PAIN LEVEL 1 - 3 Last Admin: 01/26/20 21:08 Dose: 50 mg Documented by: - Objective Vital Signs: Vital Signs Temperature 100.3 F H 01/27/20 06:00 Pulse Rate 92 H 01/27/20 06:00 Respiratory Rate 18 01/27/20 06:00 Blood Pressure 130/74 01/27/20 06:00 O2 Sat by Pulse Oximetry (%) 98 01/27/20 07:47 Labs: CBC, BMP 01/27/20 08:01 01/27/20 06:00
[2020-01-27] MEDS: SUCRALFATE 1 GM/10 ML UNIT DOSE CUPS PO SCH (09:39)
[2020-01-27] MEDS: SENNOSIDES/DOCUSATE COMBO (SENNA PLUS) TABLET (UD) PO SCH (09:39)
[2020-01-27] MEDS: MULTIVITAMINS (DAILY MVI) TABLET (FP) PO SCH (09:40)
[2020-01-27] MEDS: ASPIRIN 325 MG TABLET PO SCH (09:40)
[2020-01-27] MEDS: PANTOPRAZOLE 40 MG TABLET PO SCH (09:40)
--- NOTE | 2020-01-27 10:25 | DS ---
Physical Exam: SUBJECTIVE: Patient seen and examined OBJECTIVE: Vital Signs Period Temp Pulse Resp BP Sys/Estevez Pulse Ox Last 24 Hr 99.2 F-100.3 F 66-92 16-18 95-130/56-76 95-100 PHYSICAL EXAM GENERAL: The patient is awake, alert, and fully oriented, in no acute distress. HEAD: Normal with no signs of trauma. EYES: PERRL, extraocular movements intact, sclera anicteric, conjunctiva clear. NECK: Trachea midline, full range of motion, supple. LUNGS: Breath sounds equal, clear to auscultation bilaterally, no wheezes, no crackles, no accessory muscle use. HEART: Regular rate and rhythm, S1, S2 without murmur, rub or gallop. ABDOMEN: Soft, nontender, nondistended, normoactive bowel sounds, no guarding, no rebound, no hepatosplenomegaly, no masses. EXTREMITIES: 2+ pulses, warm, well-perfused, no edema. NEUROLOGICAL: Cranial nerves II through XII grossly intact. Normal speech, gait slow and steady with rolling walker. PSYCH: Normal mood, normal affect. SKIN: Warm, dry, normal turgor, no rashes or lesions noted. Left hip dressing clean and intact, mild peripheral erythema to superior aspect of dressing. no exudate noted LABS Laboratory Results - last 24 hr 01/26/20 01/26/20 01/26/20 13:55 13:55 15:03 WBC 8.2 RBC 3.85 Hgb 10.9 Hct 31.8 L MCV 82.5 MCH 28.4 MCHC 34.3 RDW 12.6 Plt Count 153 MPV 6.0 L Absolute Neuts (auto) 6.9 Neutrophils % 84.4 H Lymphocytes % 9.2 Monocytes % 5.2 Eosinophils % 1.0 Basophils % 0.2 Sodium 135 L Potassium 4.0 Chloride 104 Carbon Dioxide 27 Anion Gap 4 L BUN 14.0 Creatinine 0.8 Est GFR (CKD-EPI)AfAm 94.19 Est GFR (CKD-EPI)NonAf 81.27 Random Glucose 114 H Calcium 8.1 L Phosphorus 3.6 Magnesium 1.5 L Total Bilirubin 0.9 AST 28 ALT 15 Alkaline Phosphatase 53 Total Protein 5.1 L Albumin 2.7 L TSH 0.01 L Urine Color [place] Urine Appearance Clear Urine pH 5.5 Urine Protein Negative Urine Glucose (UA) Negative Urine Ketones Negative Urine Blood Negative Urine Nitrite Negative Urine Bilirubin Negative Urine Urobilinogen 0.2 Ur Leukocyte Esterase Negative 01/27/20 01/27/20 06:00 08:01 WBC 7.6 RBC 3.55 L Hgb 9.8 L Hct 29.5 L MCV 82.9 MCH 27.4 MCHC 33.1 RDW 12.0 Plt Count 152 MPV 6.5 L Absolute Neuts (auto) 6.1 Neutrophils % 79.7 Lymphocytes % 10.7 Monocytes % 7.1 Eosinophils % 2.3 Basophils % 0.2 Sodium 136 Potassium 4.0 Chloride 102 Carbon Dioxide 27 Anion Gap 7 L BUN 9.0 Creatinine 0.6 Est GFR (CKD-EPI)AfAm 116.45 Est GFR (CKD-EPI)NonAf 100.47 Random Glucose 104 Calcium 8.2 L Phosphorus Magnesium 1.7 L Total Bilirubin 0.7 AST 23 ALT 12 L Alkaline Phosphatase 62 Total Protein 5.0 L Albumin 2.5 L TSH Urine Color Urine Appearance Urine pH Urine Protein Urine Glucose (UA) Urine Ketones Urine Blood Urine Nitrite Urine Bilirubin Urine Urobilinogen Ur Leukocyte Esterase HOSPITAL COURSE: Date of Admission:01/25/20 Date of Discharge: 01/27/20 Minutes to complete discharge: 60 Discharge Summary Problems reviewed: Yes Reason For Visit: OSTEOARTHRITIS s/p left BENJAMIN total hip replacement Procedures: Principal: - Note: Operative Date: 01/25/20 (jessica). Pre-Operative Diagnosis: left hip djd. Operation: left benjamin thr. Post-Operative Diagnosis: Same as Pre-op. Surgeon: Paddy Selby Picker Tender Helper: Kameron Monroe). Anesthesiologist/FOAM RUBBER CURER: Cori Gonzales. Anesthesia: Spinal, Local. Specimens Removed: femoral head. Estimated Blood Loss (mls): 150 Other Procedures: Left hip X-ray 01/25/20. Left hip: Postop. Hip replacement. One view of the left hip reveals a left hip replacement with soft tissue swelling and soft tissue air. Imaging is available for review. Reported By: Chucho Orozco MD 01/25/20 1007. . CXR 01/26/2020. Impression: No acute chest pathology. Reported By: Chucho Orozco MD 01/26/20 1536. Hospital Course: 57 year-old female with a PMH significant for HLD, hypothyroidism, medina- hypopituitarism (s/p brain surgery), migraines, and left hip degenerative joint disease s/p left BENJAMIN total hip replacement. Patient was fluid resuscitated post op and pain managed with APAP, Tramadol, and oxycodone. DVT prophylaxis: OOB, ambulation, SCDs, TEDs, ASA 325mg daily. Pt noted to have low grade temps ranging from 99.2-100.3, she has no signs of localized infection, WBC normal and she remains hemodynamically stable. On 01/25, pt missed PT session due to dizziness and weakness. On 01/26, pt with borderline BPs, she was given 1L fluid bolus over 1hr at noon. She completed her PT session x 2 by 11:30am without incident and was deemed stable for discharge home. Pt will perform serial monitoring of her temps and call office if her Temp > 100.4 Of note, pt with low TSH and is currently on synthroid 125mcg along with past h/o medina-hypopituitarism. Pt encouraged to call her armored vehicle officer for follow up. Health Concerns: Discharge Instructions for Total Hip Replacement Surgery You had a hip replacement surgery. This means your natural hip was replaced with an artificial joint (prosthesis). You may be recovering at home or in a rehabilitation facility. Either way, you must take care of your new hip. Do this by moving and sitting the way you were taught in the hospital. Also, be sure to see your healthcare provider for follow-up visits, and return to activity slowly. A total hip replacement is major surgery. So it will be a few months before you can move comfortably. Home care Take your pain medicine exactly as directed. Dont drive until your healthcare provider says its OK. And never drive while taking opioid pain medicine. Wear the support stockings you were given in the hospital. Wear them for 24 hours a day for 3 to 4 weeks. To relieve discomfort at night, get up and move around. Tell all your healthcare providersincluding your dentistabout your artificial joint before any procedure. You may need to take antibiotics before dental work and other medical procedures to reduce the risk of infection. Arrange to have your madi removed around 2 weeks after surgery. The madi were used to close the skin incision. Incision care Check your incision daily for redness, swelling, tenderness, or drainage. Prevent infection by washing your hands often. If an infection occurs, it will need to be treated right away. Call your healthcare provider right away if you think you may have an infection. Symptoms include a fever, chills, redness, warmth or an incision that leaks white, green, or yellow fluid. Don't soak your incision in water until your provider says its OK. This means no hot tubs, bathtubs, or swimming pools. Wait 5 to 7 days after your surgery to start showering. Then shower as needed. Carefully wash your incision with soap and water. Gently pat it dry. Dont rub the incision, or apply creams or lotions to it. And to prevent falling when showering, sit on a shower stool. Sitting and sleeping Dont sit for more than 30 to 45 minutes at a time. Use chairs with arms, and sit with your knees slightly lower than your hips. Dont sit on low or sagging chairs or couches. Dont lean forward while sitting. Dont cross your legs. Keep your feet flat on the floor. Dont turn your foot or leg inward. This stresses your hip joint. Use a raised toilet seat for 6 weeks after surgery. Ask your healthcare provider if its OK to sleep on your stomach or on the side that has the new hip. Use pillows between your legs when sleeping on your back or on your side. Sit on a firm cushion when you ride in a car and dont sit too low. Try not to bend your hip too much when getting in and out of the car. Moving safely Dont bend at the hip when you bend over. Don't bend at the waist to put on socks and shoes. And don't continuous pickling line pickler items from the floor. Use a cane, crutches, a walker, or handrails until your balance, flexibility, and strength improve. And remember to ask for help from others when you need it. Free up your hands so that you can use them to keep balance. Use a rylee pack, apron, or pockets to carry things. Follow your healthcare providers orders about how much weight to put on the affected leg. Walk often and do prescribed exercises as instructed. Arrange your household to keep the items you need within reach. Remove electrical cords, throw rugs, and anything else that may cause you to fall. Use nonslip bath mats, grab bars, a raised toilet seat, and a shower chair in your bathroom. Follow-up Make a follow-up appointment as directed by your healthcare provider. Reference: [email or web address] Plan of Treatment: Call 911 Call 911 right away if you have any of the following: Chest pain Shortness of breath When to call your healthcare provider Call your healthcare provider right away if you have any of the following: Hip pain gets worse Pain or swelling in your calf or leg not related to your incision Tenderness or redness in your calf Fever of 100.4F (38C) or higher, or as directed by your healthcare provider Shaking chills Swelling or redness at the incision site gets worse Fluid draining from the incision Condition: Stable - Instructions Diet, Activity, Other Instructions: Post-op Instructions-Total Hip Replacement Call the office for a follow-up appointment in 1 week - [phone] Aspirin 325mg daily for 6 weeks. Pain medication was sent into your pharmacy. Apply Graduated Compression Stockings (TEDs) to both lower extremities- remove daily for hygiene ONLY Apply Sequential Compression Device (SCDs) to both Lower extremities remove for PT and hygiene ONLY Apply cold packs to affected area for 15 minutes every 2 hours. Physical Therapist will come to your home for the first 5 days. You will be set up with outpatient PT at your first post-operative visit. Patient may ambulate as tolerated-encourage self care (at least every 2-3 hours while awake) with walker or cane Maintain Aquacel (waterproof) dressing to operative wound (will be removed by surgeon at first office visit) Shower with Aquacel dressing in place-if Aquacel integrity compromised, remove and apply dry sterile dressing and notify Orthopedist. DO NOT SHOWER unless Orthopedists approves without Aquacel dressing CONTACT THE OFFICE FOR ANY CHANGE IN YOUR CONDITION (for example-fever greater than 102 degrees, excessive bleeding from operative site, purulent drainage, severe swelling or pain) GO TO THE EMERGENCY ROOM IF THERE IS A MEDICAL EMERGENCY Hip Precautions: * Keep a rolled towel under affected heel while in bed or chair (to keep knee in extension) * Dependent upon approach: * Posterior - do not cross legs; do not sit on low chairs or toilets. * If you have any questions, please do not hesitate to call the office - [phone]. Referrals: Luis Gómez MD [Staff Physician] - Disposition: VNS/HOME HEALTH CARE - Home Medications Comprehensive Discharge Medication List: Ambulatory Orders Simvastatin 10 mg PO DAILY tablet 12/20/12 Levothyroxine Sodium 15 mcg PO DAILY tablet 07/08/14 Cholecalciferol (Vitamin D3) [Vitamin D3] 2,000 unit PO DAILY 03/16/16 Celecoxib [Celebrex] 100 mg PO BID 01/18/20 Aspirin [ASA -] 325 mg PO DAILY@0800 tablet 01/25/20 Oxycodone HCl/Acetaminophen [Percocet 5-325 mg Tablet -] 1 - 2 tab PO Q6H #50 tab MDD 8 01/25/20 Prescription Drug Monitoring Program (I-STOP) results: I-STOP not reviewed Problem List - Problems (1) Status post left hip replacement Code(s): Z96.642 - PRESENCE OF LEFT ARTIFICIAL HIP JOINT (2) Blood pressure decreased Code(s): R03.1 - NONSPECIFIC LOW BLOOD-PRESSURE READING (3) Post-operative pain Code(s): G89.18 - OTHER ACUTE POSTPROCEDURAL PAIN (4) DVT prophylaxis Code(s): Z29.9 - ENCOUNTER FOR PROPHYLACTIC MEASURES, UNSPECIFIED This patient is new to me today: Yes Date on this admission: 01/27/20 Emergency Visit: No Critical Care patient: No - Discharge Referral Referred to [facility] Med P.C.: No
[2020-01-27] MEDS: traMADol HCL 50 MG TABLET PO PRN (11:29)
[2020-01-27] MEDS ORDERED: SODIUM CHLORIDE 0.9% 500 ML INFUS.BAG IV ONE ×2 (11:49)
[2020-01-27 14:31] VITALS: BP 103/57; PULSE 73; TEMP 98.5
--- NOTE | 2020-01-30 16:06 | PATH ---
Surgical Pathology Report Patient Name: YOON BRADLEY Med. Rec. #: [id number] /Age/Gender: 1960 (Age: 59) / F Account: [id number] Location: [facility] Taken: 01/25/2020 Received: 01/25/2020 Reported: 01/30/2020 Physicians: Paddy Selby M.D. Specimen(s) Received LEFT FEMORAL HEAD Clinical History Osteoarthritis left hip Final Diagnosis LEFT FEMORAL HEAD, LEFTTOTAL HIP REPLACEMENT: DEGENERATIVE JOINT DISEASE, LEFT HIP. Electronically Signed Natalie Galaviz M.D. Gross Description Received in formalin, labeled "left femoral head," is a 5.0 x 5.0 x 3.7 cm. femoral head with a 1.5 cm in length portion of femoral neck attached. The margin of resection is smooth. There is a 0.9 cm greatest dimension area of eburnation present. The remaining articular surface is pabon-yellow and focally granular. The underlying trabecular bone is yellow and hard. A personal financial representative section is submitted in one cassette, following decalcification. 01/28/2020 [facility]01/28/2020
== END 2020-01-27 15:00 | disposition home health service (06) | DRG 470 ==
LOC: FM/S 06:09 → UNDOADMIN 06:09 → FM/S 08:01
PROVIDERS: ADMIT Orthopaedic Surgery; ATTEND Orthopaedic Surgery
PROC: 8E0Y0CZ Robotic Assisted Procedure of Lower Extremity, Open Approach (ICD-10-PCS; 2020-01-25)
PROC: 0SRB0JZ Replacement of Left Hip Joint with Synthetic Substitute, Open Approach (ICD-10-PCS; principal; 2020-01-25 08:38)
DX: M16.12 Unilateral primary osteoarthritis, left hip (principal); E03.9 Hypothyroidism, unspecified; E78.5 Hyperlipidemia, unspecified; G43.909 Migraine, unspecified, not intractable, without status migrainosus; I95.9 Hypotension, unspecified; E86.9 Volume depletion, unspecified; R42 Dizziness and giddiness
CPT/HCPCS: 36415; 71045-TC-FY; 73502-TC-LT-FY; 80053; 81003; 83735; 84100; 84443; 85025; 85027; 87086; 88304-TC; 88311-TC; 94760; 97116-GP; 97162-GP

== ENCOUNTER 2020-03-27 12:06 | Emergency (ER) | payer OTHER | END 2020-03-27 12:16 | disposition home or self-care (01) | LOC: JVIRT 12:06 | DX: Z11.59 Encounter for screening for other viral diseases (principal) | CPT/HCPCS: C9803; G2012-GT; U0003 ==

== ENCOUNTER 2021-09-15 18:28 | Emergency (ER) | payer OTHER ==
[2021-09-15 18:53] VITALS: BP 150/62; PULSE 66; BMI 34.7
[2021-09-15] MEDS ORDERED: FAMOTIDINE 20 MG/50 ML IVPB 20 MG/50 ML MG IVPB ONE ×2 (19:21→19:26)
[2021-09-15] MEDS ORDERED: SODIUM CHLORIDE 1,000 ML IV STA (19:21)
[2021-09-15 19:49] LABS: HEMATOCRIT 37.1 % (32.4-45.2); HEMOGLOBIN 13.1 G/dL (10.7-15.3); MCH 28.9 pg (25.7-33.7); MCHC 35.4 g/dl (32.0-36.0); MEAN CELL VOLUME 81.7 fl (80-96); MEAN PLT VOLUME 6.4 fl (7.5-11.1); PLATELET COUNT 121.8 10^3/uL (134-434); RBC 4.54 10^6/uL (3.60-5.2); RDW 14.6 % (11.6-15.6); WHITE BLOOD COUNT 4.2 10^3/uL (4.0-10.8)
[2021-09-15 20:04] LABS: ALBUMIN 3.8 g/dl (3.4-5.0); BILIRUBIN,TOTAL 0.8 mg/dl (0.2-1); CALCIUM 9.6 mg/dl (8.5-10); CREATININE 0.8 mg/dl (0.55-1.3); TOT PROT 6.4 g/dl (6.4-8.2)
[2021-09-15 20:13] LABS: PLATELET ESTIMATE SLT DECREASE
== END 2021-09-15 21:36 | disposition home or self-care (01) ==
LOC: FER 18:28
PROC: 3E033GC Introduction of Other Therapeutic Substance into Peripheral Vein, Percutaneous Approach (ICD-10-PCS; principal; 2021-09-15)
PROC: 3E0337Z Introduction of Electrolytic and Water Balance Substance into Peripheral Vein, Percutaneous Approach (ICD-10-PCS; 2021-09-15)
DX: R10.13 Epigastric pain (principal)
CPT/HCPCS: 36415; 76705-TC; 80053; 84484; 85027; 93005; 99285-25

== ENCOUNTER 2023-05-11 10:18 | Day surgery (SDC) | payer BC, OTHER ==
[2023-05-09 10:10] VITALS: BMI 32.5
[2023-05-11] MEDS: TROPICAMIDE 1% OPHTH SOLN 15 ML BOTTLE ONE ×3 (10:50→11:00)
[2023-05-11] MEDS: CIPROFLOXACIN 0.3% EYE DROPS 5 ML BOTTLE ONE ×3 (10:50→11:00)
[2023-05-11] MEDS: CYCLOPENTOLATE 2% OPHTH SOLN 2 ML BOTTLE ONE ×3 (10:50→11:00)
[2023-05-11] MEDS: PHENYLEPHRINE 2.5% OPTHALMIC DROP 2ML BOTTLE ONE ×3 (10:50→11:00)
[2023-05-11 10:58] VITALS: RESP 19
[2023-05-11] MEDS ORDERED: LIDOCAINE 1% P/F 10 MG/ML VIAL ONE (11:29)
[2023-05-11] MEDS ORDERED: CARBACHOL 0.01% INTRA-OCULAR 1.5 ML VIAL ONE (11:30)
[2023-05-11] MEDS ORDERED: BSS (NA/CA/MG/K) BALANCED SALT SOLUTION OPHTH SOLN 15 ML BOTTLE ONE (11:30)
[2023-05-11] MEDS ORDERED: TETRACAINE 0.5% OPHTH SOLN 2 ML BOTTLE ONE (11:30)
[2023-05-11] MEDS ORDERED: NEO/POLYMYX B SULF/DEXAMETH OPHTHALMIC 5ML BOTTLE ONE (11:30)
[2023-05-11] MEDS ORDERED: LIDOCAINE HCL/PF 1% SDV 5ML VIAL ONE (11:30)
[2023-05-11] MEDS ORDERED: EPINEPHrine/PF 1 MG/1 ML (1:1,000) AMPULE ONE (11:33)
[2023-05-11] MEDS ORDERED: MIDAZOLAM HCL 2 MG/2 ML SINGLE DOSE VIAL ONE (12:27)
[2023-05-11 13:52] VITALS: TEMP 97.8
[2023-05-11 13:55] VITALS: BP 112/81; PULSE 56
== END 2023-05-11 13:30 | disposition home or self-care (01) ==
LOC: FASU 10:18
PROVIDERS: ATTEND Ophthalmology
PROC: 08RJ3JZ Replacement of Right Lens with Synthetic Substitute, Percutaneous Approach (ICD-10-PCS; principal; 2023-05-11 12:35)
DX: H26.8 Other specified cataract (principal)
CPT/HCPCS: 66984; V2632